=== PATIENT | female | born 1990 | race Caucasian/White ===

== ENCOUNTER 2019-10-19 08:36 | Emergency (ER) | payer OTHER ==
[~2019-10-19] VITALS: Ht 154.9 cm; Wt 84.7 kg
--- NOTE | 2019-10-19 08:57 | NUR ---
FIRST CONTACT WITH PT. PT WAS SENT FROM [facility]. POSSIBLE "GALL BLADDER INFECTION." PT C/O ABD PAIN WITH NAUSEA. PT'S AOX4. RESPS EVEN AND UNLABORED. BP/SPO2 MONITORS IN PLACE. CALL LIGHT WITHIN REACH. PA AT BEDSIDE TO EVALUATE AT THIS TIME.
[2019-10-19] MEDS ORDERED: SODIUM CHLORIDE FLUSH 10ML SYR IVF ONE (09:00)
[2019-10-19 09:25] LABS: BASOPHILS # (AUTO) 0.02 x10^3/uL (0-0.1); BASOPHILS % (AUTO) 0 % (0-1); EOSINOPHILS # (AUTO) 0.02 x10^3/uL (0-0.4); EOSINOPHILS % (AUTO) 0 % (1-7); LYMPHOCYTES # (AUTO) 2.68 x10^3/uL (1-3.4); LYMPHOCYTES % (AUTO) 26 % (22-44); MD NO; MEAN CORPUSCULAR HEMOGLOBIN 30.1 pg (27.0-34.8); MEAN CORPUSCULAR HGB CONC 33.3 g/dL (32.4-35.8); MEAN CORPUSCULAR VOLUME 90.3 fL (80-100); MEAN PLATELET VOLUME 7.9 fL (7.4-10.4); MONOCYTES # (AUTO) 0.38 x10^3/uL (0.2-0.8); MONOCYTES % (AUTO) 4 % (2-9); NEUTROPHILS # (AUTO) 7.23 x10^3/uL (1.8-6.8); NEUTROPHILS % (AUTO) 70 % (42-75); PLATELET COUNT 406 x10^3/uL (130-400); RED BLOOD COUNT 4.33 x10^6/uL (3.82-5.3); RED CELL DISTRIBUTION WIDTH 13.3 % (9.6-15.2)
[2019-10-19 09:34] LABS: ALANINE AMINOTRANSFERASE 54 U/L (12-78); ALBUMIN 3.6 g/dL (3.4-5.0); ANION GAP 8 mmol/L (5-15); CALCIUM 8.3 mg/dL (8.5-10.1); CHLORIDE 110 mmol/L (98-107)
[2019-10-19 09:39] LABS: ALKALINE PHOSPHATASE 60 U/L (45-117); BILIRUBIN,TOTAL 0.5 mg/dL (0.2-1.0); TOTAL PROTEIN 7.6 g/dL (6.4-8.2)
--- NOTE | 2019-10-19 09:50 | NUR ---
pt resting in [facility]. pt states "no food and drink since 8pm last night. no medications today." NM updated with these information by phone. pt's aox4. resps even and unlabored. call light within reach.
--- NOTE | 2019-10-19 10:30 | NUR ---
pt resting in [facility]. pt's aox4. resps even and unlabored. bp/spo2 monitors in place. call light within reach.
--- NOTE | 2019-10-19 11:07 | NUR ---
pt in [facility]ida scan at this time.
[2019-10-19] MEDS ORDERED: SINCALIDE (KINEVAC) 5 MCG ONE (11:53)
--- NOTE | 2019-10-19 12:07 | NUR ---
pt still in [facility]ida scan at this time.
--- NOTE | 2019-10-19 12:45 | NUR ---
TASK RN NOTE: PT SITTING UP IN BED USING CELL PHONE. NAD NOTED AT THIS TIME.
[2019-10-19 12:48] VITALS: BP 118/76
--- NOTE | 2019-10-19 13:47 | NUR ---
PT'S MOTHER IN LAW CALLED AND UPDATED INFO. PT'S OK'D TO TALK TO HER.
--- NOTE | 2019-10-19 14:14 | NUR ---
Patient given discharge instructions and they have confirmed that they understand the instructions. Patient ambulatory with steady gait.
== END 2019-10-19 14:15 | disposition home or self-care (01) ==
LOC: ED 09:02
DX: K80.70 Calculus of gallbladder and bile duct without cholecystitis without obstruction (principal)
CPT/HCPCS: 36415; 78227; 80053; 83690; 84703; 85025; 99284; A9537; C9898; J2805